=== PATIENT | female | born 1965 | race American Indian/Alaskan Native ===

== ENCOUNTER 2018-08-15 14:25 | Emergency (ER) | payer MEDICARE, BC ==
--- NOTE | 2018-08-15 15:00 | Emergency Department Report ---
Chief Complaint: Dyspnea/Respdistress Stated Complaint: RA FLARE UP Time Seen by Provider: 08/15/18 14:57 - HPI History of Present Illness: Pt presents with "RA flare" that began a week ago states she has fatigue, generalized weakness pain in her feet and hands on prednisone 10 mg a day pt states she sees Dr. Pena in [place], states she is supposed to see Dr. Guo, Rheum hx of hypothyroid, pre-diabetes, HTN, fibromyalgia no drug allergies non smoker, non drinker, no drug use MSE screening note: Focused history performed Due to findings the following was ordered: labs ED Disposition for MSE Condition: Stable
[2018-08-15 15:17] LABS: Basophils % (Auto) 0.5 % (0.0-1.8); Eosinophils % (Auto) 0.4 % (0.0-4.3); Hematocrit 35.9 % (30.3-42.9); Hemoglobin 11.8 gm/dl (10.1-14.3); Lymphocytes # (Auto) 2.2 K/mm3 (1.2-5.4); Lymphocytes % (Auto) 21.5 % (13.4-35.0); Mean Corpuscular HGB Conc 33 % (30-34); Mean Corpuscular Volume 84 fl (79-97); Monocytes # (Auto) 0.7 K/mm3 (0.0-0.8); Monocytes % (Auto) 6.9 % (0.0-7.3); Platelet Count 307 K/mm3 (140-440); Red Blood Count 4.28 M/mm3 (3.65-5.03); Red Cell Distribution Width 17.5 % (13.2-15.2)
[2018-08-15 15:39] LABS: Erythrocyte Sedimentation Rate 57 mm/Hr (0-20)
[2018-08-15 15:40] LABS: BUN/Creatinine Ratio 15; Blood Urea Nitrogen 17 mg/dL (7-17); Hemolysis Index 8
[2018-08-15] MEDS ORDERED: IBUPROFEN ONE (18:06)
[2018-08-15] MEDS ORDERED: SOLU-Medrol IM STA (19:25)
[2018-08-15] MEDS ORDERED: NORCO 5/325 PO STA (19:25)
--- NOTE | 2018-08-15 19:47 | Emergency Department Report ---
ED General Adult HPI - General Chief complaint: Dyspnea/Respdistress Stated complaint: RA FLARE UP Time Seen by Provider: 08/15/18 14:57 Source: patient Mode of arrival: Ambulatory Limitations: No Limitations - History of Present Illness Initial comments: 52-year-old female who was recently relocated from [place] with reported past medical history rheumatoid arthritis, presents to emergency department complaining of a rheumatoid pain. Currently is taking her medications as prescribed with no complications. Because been noticing wo rsening joint aches and pains and some increase in fatigue as well. She reports no numbness, tingling, no headaches, no blurred vision, no chest pain, palpitations, no hemoptysis, hematemesis, hematochezia, no diarrhea, no vomiting, no fever, chills, sweats, trauma. Radiation: non-radiation Severity scale (0 -10): 4 Consistency: constant Improves with: none Worsens with: none Associated Symptoms: denies other symptoms, malaise. denies: cough, d iaphoresis, headaches, syncope, weakness - Related Data Previous Rx's Medication Instructions Recorded Last Taken Type Tramadol HCl/Acetaminophen 1 each PO Q6HR PRN #10 tablet 08/15/18 Unknown Rx [Ultracet Tablet] predniSONE [Prednisone] 50 mg PO DAILY #5 tablet 08/15/18 Unknown Rx Allergies Allergy/AdvReac Type Severity Reaction Status Date / Time No Known Allergies Allergy Verified 08/15/18 14:34 ED Review of Systems ROS: Stated complaint: RA FLARE UP Other details as noted in HPI Constitutional: denies: chills, fever Eyes: denies: eye pain, eye discharge, vision change ENT: denies: ear pain, throat pain Respiratory: denies: cough, shortness of breath, wheezing Cardiovascular: denies: chest pain, palpitations Endocrine: no symptoms reported Gastrointestinal: denies: abdominal pain, nausea, diarrhea Genitourinary: denies: urgency, dysuria, discharge Musculoskeletal: arthralgia. denies: back pain, joint swelling Skin: denies: rash, lesions Neurological: denies: headache, weakness, paresthesias Psychiatric: denies: anxiety, depression Hematological/Lymphatic: denies: easy bleeding, easy bruising ED Past Medical Hx - Past Medical History Hx Hypertension: Yes Hx Diabetes: Yes (diet controlled) Hx Arthritis: Yes (RA) Additional medical history: fibromyalgia,hypothyroidism, - Surgical History Additional Surgical History: right knee,left hip,hysterectomy - Social History Smoking Status: Never Smoker Substance Use Type: None - Medications Home Medications: Home Medications Medication Instructions Recorded Confirmed Last Taken Type Tramadol HCl/Acetaminophen 1 each PO Q6HR PRN #10 tablet 08/15/18 Unknown Rx [Ultracet Tablet] predniSONE [Prednisone] 50 mg PO DAILY #5 tablet 08/15/18 Unknown Rx ED Physical Exam - General Limitations: No Limitations General appearance: alert, in no apparent distress - Head Head exam: Present: atraumatic, normocephalic - Eye Eye exam: Present: normal appearance, PERRL, EOMI Pupils: Present: normal accommodation - ENT ENT exam: Present: normal exam, normal orophraynx, mucous membranes moist, TM's normal bilaterally - Neck Neck exam: Present: normal inspection, full ROM - Respiratory Respiratory exam: Present: normal lung sounds bilaterally. Absent: respiratory distress, wheezes, rales, rhonchi, chest wall tenderness, accessory muscle use - Cardiovascular Cardiovascular Exam: Present: regular rate, normal rhythm. Absent: systolic murmur, diastolic murmur, rubs, gallop - GI/Abdominal GI/Abdominal exam: Present: soft, normal bowel sounds - Extremities Exam Extremities exam: Present: normal inspection, full ROM, normal capillary refill - Back Exam Back exam: Present: normal inspection, full ROM. Absent: CVA tenderness (R), CVA tenderness (L) - Neurological Exam Neurological exam: Present: alert, oriented X3 - Psychiatric Psychiatric exam: Present: normal affect, normal mood - Skin Skin exam: Present: warm, dry, intact, normal color. Absent: rash ED Course Vital Signs 08/15/18 08/15/18 15:00 19:40 Temperature 97.8 F Pulse Rate 88 80 Respiratory 18 17 Rate Blood Pressure 138/82 O2 Sat by Pulse 100 100 Oximetry ED Medical Decision Making - Lab Data Result diagrams: 08/15/18 15:03 08/15/18 15:03 - Medical Decision Making 52-year-old female with past medical history of rheumatoid arthritis, fibromyalgia and hypothyroidism thyroidism position. department complaining of joint aches and pains and malaise. Her TSH is in normal range, as is her CRP and her sedimentation rate. Currently on prednisone and requesting a dose of Solu-Medrol. Also having issues with pain control was on a host of medications including meloxicam, ibuprofen 800, [place]line Lyrica, has scheduled an appointment with Dr. Lake of rheumatology here in the left. Currently laboratory data is relatively normal. Her vital signs are stable. No acute distress. Advised her to keep her appointment with Dr. Lake will treat her with some analgesia control today. She didn't advised to return to emergency department should she develop a fever, spontaneous bleeding, uncontrollable nausea, vomiting, uncontrollable pain Critical care attestation.: If time is entered above; I have spent that time in minutes in the direct care of this critically ill patient, excluding procedure time. ED Disposition Clinical Impression: Arthralgia, Chronic pain Disposition: TO HOME OR SELFCARE Is pt being admited?: No Does the pt Need Aspirin: No Condition: Stable Instructions: Chronic Pain (ED), Rheumatoid Arthritis (ED) Prescriptions: predniSONE [Prednisone] 50 mg PO DAILY #5 tablet Tramadol HCl/Acetaminophen [Ultracet Tablet] 1 each PO Q6HR PRN #10 tablet PRN Reason: Pain , Severe (7-10) Referrals: JUAN POLLOCK MD [Primary Care Provider] - 3-5 Days Omar Lake [Other] - 3-5 Days (Keep your appointment for Dr. Omar Lake for r heumatoid arthritis management)
[2018-08-16 19:13] VITALS: BP 138/82
== END 2018-08-15 19:39 | disposition home or self-care (01) ==
LOC: ED 14:25
DX: G89.4 Chronic pain syndrome (principal); M06.9 Rheumatoid arthritis, unspecified; I10 Essential (primary) hypertension; E11.9 Type 2 diabetes mellitus without complications; M79.7 Fibromyalgia; E03.9 Hypothyroidism, unspecified; Z90.710 Acquired absence of both cervix and uterus
CPT/HCPCS: 36415; 80048; 84443; 85025; 85652; 86140; 96372; 99283; J2930

== ENCOUNTER 2018-11-02 14:51 | Outpatient (CLI) | payer MEDICARE ==
--- NOTE | 2018-11-02 16:17 | XRay Report ---
LUMBOSACRAL SPINE, 3 VIEWS SACROILIAC JOINTS, 3 VIEWS INDICATION: BACK PAIN. COMPARISON: None. Findings: Mild osteopenia is suspected. There is 3 mm anterolisthesis of L4 with respect to L5 which appears to be secondary to degenerative facet arthropathy. The remaining lumbar vertebrae are normal in alignme nt. No compression deformity, fracture or bone lesion is identified. Mild disc space narrowing is indy ntified at L4-5 and L5-S1. There is moderate hypertrophic facet arthropathy throughout the lumbar reg ion which is most pronounced at L4-5. The SI joints demonstrate mild symmetric osteoarthritic changes. No evidence for bony erosions or fus ion. IMPRESSION: Degenerative findings as described above. No acute injury is identified. Mild osteopenia is suspected. Signer Name: Zachary Braden Jr, MD Signed: 11/02/2018 4:12 PM Workstation Name: [id number]
== END 2018-11-02 14:52 | disposition home or self-care (01) ==
LOC: SPVIMAG 14:51
PROVIDERS: ATTEND Internal Medicine
DX: M43.16 Spondylolisthesis, lumbar region (principal); M48.061 Spinal stenosis, lumbar region without neurogenic claudication; M47.818 Spondylosis without myelopathy or radiculopathy, sacral and sacrococcygeal region; I10 Essential (primary) hypertension; Z90.710 Acquired absence of both cervix and uterus
CPT/HCPCS: 72100; 72202

== ENCOUNTER 2018-12-17 20:23 | Emergency (ER) | payer MEDICARE ==
[2018-12-17 20:49] VITALS: BP 147/66
[2018-12-17] MEDS ORDERED: DELTASONE PO ONE (20:51)
--- NOTE | 2018-12-17 20:52 | Event Note ---
ED Screening Note Date of service: 12/17/18 Time: 20:46 ED Screening Note: 53 y/o female comes in for left great toe pain and swelling times 1 week. Does admit to having technology sales consultant dig deep into her medical cuticle. This initial assessment/diagnostic orders/clinical plan/treatment(s) is/are manning bject to change based on patients health status, clinical progression and re- assessment by fellow clinical providers in the ED. Further treatment and workup at subsequent clinical providers discretion. Patient/guardian urged not to elope from the ED as their condition may be serious if not clinically assessed and managed. Initial orders include:
--- NOTE | 2018-12-17 22:50 | Emergency Department Report ---
ED Extremity Problem HPI - General Chief complaint: Extremity Injury, Lower Stated complaint: RT TOE PAIN Time Seen by Provider: 12/17/18 20:45 Source: patient Mode of arrival: Ambulatory Limitations: No Limitations - History of Present Illness Initial comments: Patient is a 53-year-old female presents to the emergency room with complaints of right big toe pain that began a week ago. The patient states she has a history of gout and ingrown toenails. She denies any drainage or fever. she has been ambulatory. she denies any fall or injury. she denies any allergies to meds. States she also has a history of RA, fibromyalgia, hypothyroid, hypoparathyroid, CKD. - Related Data Previous Rx's Medication Instructions Recorded Last Taken Type predniSONE [Prednisone] 50 mg PO DAILY #5 tablet 08/15/18 Unknown Rx Acetaminophen [Acetaminophen 8 650 mg PO Q8HR PRN #20 tablet.er 12/17/18 Unknown Rx Hour] Tramadol HCl/Acetaminophen 1 each PO Q6HR PRN #10 tablet 12/17/18 Unknown Rx [Ultracet] Allergies Allergy/AdvReac Type Severity Reaction Status Date / Time No Known Allergies Allergy Verified 09/01/18 19:03 ED Review of Systems ROS: Stated complaint: RT TOE PAIN Other details as noted in HPI Comment: All other systems reviewed and negative ED Past Medical Hx - Past Medical History Hx Hypertension: Yes Hx Diabetes: Yes (diet controlled) Hx Renal Disease: Yes (STAGE 3) Hx Arthritis: Yes (RA) Additional medical history: fibromyalgia,hypothyroidism, hyperparathyroidism, MGUS,GOUT - Surgical History Additional Surgical History: right knee,left hip,hysterectomy,TUBILIGATION - Social History Smoking Status: Never Smoker Substance Use Type: None - Medications Home Medications: Home Medications Medication Instructions Recorded Confirmed Last Taken Type predniSONE [Prednisone] 50 mg PO DAILY #5 tablet 08/15/18 Unknown Rx Acetaminophen [Acetaminophen 8 650 mg PO Q8HR PRN #20 tablet.er 12/17/18 Unknown Rx Hour] Tramadol HCl/Acetaminophen 1 each PO Q6HR PRN #10 tablet 12/17/18 Unknown Rx [Ultracet] ED Physical Exam - General Limitations: No Limitations General appearance: alert, in no apparent distress - Head Head exam: Present: atraumatic, normocephalic - Eye Eye exam: Present: normal appearance - ENT ENT exam: Present: mucous membranes moist - Neurological Exam Neurological exam: Present: alert, oriented X3 - Psychiatric Psychiatric exam: Present: normal affect, normal mood - Skin Skin exam: Present: warm, dry, other (TTP over the right big toe on the medial surface of the nail bed, toe nail appears to curve inward on both sides consistent with ingrown toenail, no drainage, no edema, no fluctuance, no increased warmth, no erythema, FROM of the right big toe without difficulty, no tophi, 2+ distal pulse, sensation intact) ED Course Vital Signs 12/17/18 20:46 Temperature 98.9 F Pulse Rate 92 H Respiratory 14 Rate Blood Pressure 147/66 O2 Sat by Pulse 99 Oximetry ED Medical Decision Making - Medical Decision Making Patient is a 53-year-old female presents to the emergency room with complaints of right big toe pain that began a week ago. The patient states she has a history of gout and ingrown toenails. She denies any drainage or fever. she has been ambulatory. she denies any fall or injury. she denies any allergies to meds. States she also has a history of RA, fibromyalgia, hypothyroid, hypoparathyroid, CKD. VSS. on exam: TTP over the right big toe on the medial surface of the nail bed, toe nail appears to curve inward on both sides consistent with ingrown toenail, no drainage, no edema, no fluctuance, no increased warmth, no erythema, FROM of the right big toe without difficulty, no tophi, 2+ distal pulse, sensation intact. examination appears consistent with an ingrown toenail, does not appear to be infected at this time, no clinical signs of gout. pt given prescription for tylenol and tramadol. advised to please take medication as prescribed as needed. Do not drive or operate machinery while taking pain medication. Follow up with a foot doctor in the next 2-3 days. Return to the emergency room for any new or worsening symptoms. - Differential Diagnosis gout, ingrown toenail, RA flare, arthritis Critical care attestation.: If time is entered above; I have spent that time in minutes in the direct care of this critically ill patient, excluding procedure time. ED Disposition Clinical Impression: Ingrown right big toenail Disposition: TO HOME OR SELFCARE Is pt being admited?: No Does the pt Need Aspirin: No Condition: Stable Instructions: Ingrown Nail (ED) Additional Instructions: Please take medication as prescribed as needed. Do not drive or operate machinery while taking pain medication. Follow up with a foot doctor in the next 2-3 days. Return to the emergency room for any new or worsening symptoms. Prescriptions: Acetaminophen [Acetaminophen 8 Hour] 650 mg PO Q8HR PRN #20 tablet.er PRN Reason: Pain, Moderate (4-6) Tramadol HCl/Acetaminophen [Ultracet] 1 each PO Q6HR PRN #10 tablet PRN Reason: Pain , Severe (7-10) Referrals: SEAN COOPER DPM [Staff Physician] - 2-3 Days JUMA VEGA MD [Staff Physician] - 2-3 Days CHENG ESCOBEDO MD [Staff Physician] - 2-3 Days Time of Disposition: 22:52 Print Language: JAMAICAN
[2018-12-17] MEDS ORDERED: DELTASONE ONE (23:08)
== END 2018-12-17 23:05 | disposition home or self-care (01) ==
LOC: ED 20:23
DX: L60.0 Ingrowing nail (principal); E03.9 Hypothyroidism, unspecified; I12.9 Hypertensive chronic kidney disease with stage 1 through stage 4 chronic kidney disease, or unspecified chronic kidney disease; E11.22 Type 2 diabetes mellitus with diabetic chronic kidney disease; N18.3 Chronic kidney disease, stage 3 (moderate); M06.9 Rheumatoid arthritis, unspecified; M79.7 Fibromyalgia; Z90.710 Acquired absence of both cervix and uterus; Z98.51 Tubal ligation status; Z98.890 Other specified postprocedural states; Z79.899 Other long term (current) drug therapy
CPT/HCPCS: 99282; J7512